=== PATIENT | male | born 1995 | race Caucasian/White ===

== ENCOUNTER → 2017-09-20 | Outpatient (CLI) | payer BC ==
--- NOTE | 2017-09-20 12:25 | DIAGNOSTIC IMAGING REPORT ---
ULTRASOUND KIDNEYS AND BLADDER CLINICAL HISTORY: Nephrolithiasis. COMPARISON STUDY: No priors. TECHNIQUE: Real-time, grayscale, and color flow sonography of the kidneys and bladder is performed. Images are reviewed in the transverse and longitudinal planes. FINDINGS: Kidneys: The kidneys are normal in size and echotexture. The right kidney measures 12.0 cm in length and the left kidney measures 11.4 cm in length. There is no hydronephrosis. No shadowing renal calculi are identified. There is no sonographic evidence of contour deforming renal mass lesion. No perinephric fluid is identified. Bladder: The bladder is normal in appearance. Bilateral ureteral jets were seen. IMPRESSION: Unremarkable sonographic assessment of the kidneys and bladder. Electronically signed by: Antonio Mcmahon M.D. 09/20/2017 12:23 PM Dictated Date/Time: 09/20/2017 12:23 PM
== END | disposition home or self-care (01) ==
LOC: C.ULTR 11:43
PROVIDERS: ATTEND Physician Assistant Medical
DX: Z87.442 Personal history of urinary calculi (principal)

== ENCOUNTER 2017-10-23 17:41 | Emergency (ER) | payer BC ==
[~2017-10-23] VITALS: Ht 188 cm; Wt 77.0 kg
[2017-10-23 17:46] VITALS: TEMP 36.9; Ht 188 cm; Wt 77.0 kg
--- NOTE | 2017-10-23 18:51 | DIAGNOSTIC IMAGING REPORT ---
CHEST ONE VIEW PORTABLE CLINICAL HISTORY: 22 years-old Male presenting with R CHEST PAIN WITH EXERTION. TECHNIQUE: Portable upright AP view of the chest was obtained. COMPARISON: None. FINDINGS: Cardiomediastinal silhouette normal. No focal opacity. No large effusion or pneumothorax. Osseous structures normal. Upper abdomen normal. IMPRESSION: 1. No acute cardiopulmonary disease. Electronically signed by: Luca Cantu M.D. 10/23/2017 6:50 PM Dictated Date/Time: 10/23/2017 6:49 PM
[2017-10-23 19:05] LABS: BASO % 0.1 %; BASO ABS # 0.01 K/uL (0-0.2); EOS % 0.1 %; EOS ABS # 0.01 K/uL (0-0.5); HEMATOCRIT 47.9 % (42-52); HEMOGLOBIN 17.2 g/dL (14.0-18.0); IG# 0.03 K/uL (0.00-0.02); LYMPH % 9.9 %; LYMPH ABS # 1.05 K/uL (1.2-3.4); MEAN CELL VOLUME 84.3 fL (80-100); MEAN CORPUSCULAR HEMOGLOBIN 30.3 pg (25-34); MEAN CORPUSCULAR HGB CONC 35.9 g/dl (32-36); MEAN PLATELET VOLUME 10.4 fL (7.4-10.4); MONO % 6.6 %; NEUT ABS # 8.77 K/uL (1.4-6.5); PLATELET COUNT 186 K/uL (130-400); RED CELL DISTRIBUTION WIDTH CV 12.4 % (11.5-14.5); RED CELL DISTRIBUTION WIDTH SD 37.6 fL (36.4-46.3); WHITE BLOOD COUNT 10.57 K/uL (4.8-10.8)
[2017-10-23 19:30] LABS: ALBUMIN 4.4 gm/dl (3.4-5.0); CALCIUM 9.1 mg/dl (8.5-10.1); CREATININE 1.22 mg/dl (0.60-1.40); POTASSIUM 3.8 mmol/L (3.5-5.1)
[2017-10-23 19:35] LABS: CKMB 1.1 ng/ml (0.5-3.6); TOTAL PROTEIN 7.5 gm/dl (6.4-8.2)
[2017-10-23 19:44] LABS: INR 1.1 (0.9-1.1); PTT PATIENT 24.5 SECONDS (21.0-31.0)
--- NOTE | 2017-10-23 21:09 | DIAGNOSTIC IMAGING REPORT ---
(CHEST FOR PE) ANGIO WITH CLINICAL HISTORY: 22 years-old Male presenting with ^PE, AORTIC ABNORMALITY ^EXERTIONAL R CHEST PAIN, shoulder pain. TECHNIQUE: Multidetector CT angiography of the chest was performed after administration of intravenous contrast. 3-D volumetric and/or maximum intensity projection (MIP) images were subsequently reconstructed for review. IV contrast: 116 mL of Optiray 320. A dose lowering technique was used consistent with the principles of ALARA (as low as reasonably achievable). COMPARISON: None. CT DOSE (mGy.cm): The estimated cumulative dose is 254.91 mGy.cm. FINDINGS: Employee Relations Specialist topogram: Unremarkable. Pulmonary vasculature: The study is adequate for assessment of the pulmonary vascular tree. No filling defect within the pulmonary arteries to suggest embolus. Main pulmonary artery is not enlarged. No flattening of the interventricular septum. No intracardiac filling defect. No reflux of contrast into the hepatic veins. Remaining chest: On soft tissue windows, normal thyroid and thoracic inlet. No axillary, supraclavicular, hilar, or mediastinal lymphadenopathy. Normal aorta. Normal heart size. No pericardial or pleural effusion. Upper abdomen normal. On lung windows, no focal infiltrate or nodule. Airways patent. On bone windows, normal osseous structures. IMPRESSION: 1. No evidence of pulmonary embolus. No acute intrathoracic pathology. Electronically signed by: Luca Cantu M.D. 10/23/2017 9:07 PM Dictated Date/Time: 10/23/2017 9:04 PM
--- NOTE | 2017-10-23 21:21 | EMERGENCY ROOM VISIT NOTE ---
History First contact with patient: 17:56 Chief Complaint: SHOULDER PAIN Stated Complaint: SHOULDER PAIN History of Present Illness Patient is an otherwise healthy 22-year-old male referred to the emergency department from [facility] for an episode of right sided clavicle/chest pain that occurred about 3 hours ago. Patient reports that he was performing a fitness test for [employer], which involved 1 minute of push-ups, 1 minute of sit ups and a 1-1/2 mile run. Patient relates that he was near the end of his ROM, when he developed a sharp, stabbing pain in the right midclavicular region, that radiated into his right upper chest and into his right biceps region. He tried to push through the pain to finish his run but was unable to. He states that he felt like if he did not stop he was going to "collapse." He states that at its worst the pain was a 9/10, was very severe which caused him to "hyperventilate," after which he became nauseous and vomited. He tried resting, walking, stretching and drinking water, but the pain persisted for over 90 minutes after he stopped running. He was thus sent to [facility] where they checked his vital signs and performed an EKG and referred him to the emergency department. At the present time the patient still has similar pain although only rates it a 6.5/10 presently. He notes the pain is better when he lays supine and he notes increased pressure when he sits upright. There is also some increased pain with taking a deep breath. He notes some tightness in his upper back but no actual right shoulder joint pain and the pain does not increase with shoulder movement. Patient denies any numbness, tingling or weakness radiating into the upper extremities bilaterally. The patient does report that he has had similar episodes of pain in the past but not as severe. He denies any calf or leg pain or swelling. He does report that he drove several hours to and from [place] this weekend, returning yesterday. Review of Systems Review of systems as per HPI. All other systems reviewed were negative. 10 systems reviewed. Past Medical/Surgical History Medical Problems: (1) Personal History Of Urinary Calculi (2) Sore throat Electronic medical records are reviewed and summarized as above/below. See Problem List. Social History Smoking Status: Never Smoker Alcohol Use: none Marital Status: single Housing Status: lives with roommate Occupation Status: [employer] student Current/Historical Medications No Active Prescriptions or Reported Meds Physical Exam Vital Signs Date Time Temp Pulse Resp B/P (MAP) Pulse Ox O2 Delivery O2 Flow Rate FiO2 10/23/17 17:46 36.9 109 18 118/69 96 Room Air Physical Exam CONSTITUTIONAL: Patient is a pleasant, well-appearing 22-year-old male who is awake and alert and sitting semiupright on the gurney in no acute distress. No conversational dyspnea. Vital signs are stable. He was slightly tachycardic in triage with a heart rate of 109 bpm. Vital signs were rechecked by me at the time of exam, heart rate was 88 bpm, O2 sat 96% on room air, BP in the left arm 120/70, BP in the right arm 125/69. EYES: Pupils equal, round, reactive to light and accommodation. EOMs intact without nystagmus. Sclera are anicteric. ENT: Tympanic membranes intact, with normal landmarks. External canals are clear. Oral and nasopharynx are clear. Mucous membranes are moist, no lesions , tongue and gums appear normal. NECK: No bruits auscultated. Supple without lymphadenopathy. No thyromegaly. No meningeal signs. Full active range of motion without discomfort. CARDIOVASCULAR: Regular rate and rhythm, with normal S1 and S2, no murmur or gallop or rub is heard. No carotid bruits auscultated. No JVD. Peripheral pulses easy to palpable. RESPIRATORY: Breath sounds equal and clear to auscultation without wheezes, rales, or rhonchi heard. Full and equal chest expansion without accessory muscle use or retractions. MUSCULOSKELETAL: Full range of motion of extremities x 4 with good strength. No cyanosis, edema, joint tenderness or swelling. No deformity. Right shoulder is nontender to palpation. Full range of motion. There is no reproducible tenderness to discomfort in the right trapezius or clavicular distribution. INTEGUMENTARY: No lesions or rash, normal skin turgor. NEUROLOGICAL: Alert, oriented, and cooperative. Cranial nerves, sensation and strength grossly intact. Pupils round, equal, and react to light, EOMs are full. LYMPH: No lymphadenopathy. Medical Decision & Procedures ER Provider Diagnostic Interpretation: (CHEST FOR PE) ANGIO WITH CLINICAL HISTORY: 22 years-old Male presenting with ^PE, AORTIC ABNORMALITY ^EXERTIONAL R CHEST PAIN, shoulder pain. TECHNIQUE: Multidetector CT angiography of the chest was performed after administration of intravenous contrast. 3-D volumetric and/or maximum intensity projection (MIP) images were subsequently reconstructed for review. IV contrast: 116 mL of Optiray 320. A dose lowering technique was used consistent with the principles of ALARA (as low as reasonably achievable). COMPARISON: None. CT DOSE (mGy.cm): The estimated cumulative dose is 254.91 mGy.cm. FINDINGS: Presiding Judge topogram: Unremarkable. Pulmonary vasculature: The study is adequate for assessment of the pulmonary vascular tree. No filling defect within the pulmonary arteries to suggest embolus. Main pulmonary artery is not enlarged. No flattening of the interventricular septum. No intracardiac filling defect. No reflux of contrast into the hepatic veins. Remaining chest: On soft tissue windows, normal thyroid and thoracic inlet. No axillary, supraclavicular, hilar, or mediastinal lymphadenopathy. Normal aorta. Normal heart size. No pericardial or pleural effusion. Upper abdomen normal. On lung windows, no focal infiltrate or nodule. Airways patent. On bone windows, normal osseous structures. IMPRESSION: 1. No evidence of pulmonary embolus. No acute intrathoracic pathology. CHEST ONE VIEW PORTABLE CLINICAL HISTORY: 22 years-old Male presenting with R CHEST PAIN WITH EXERTION. TECHNIQUE: Portable upright AP view of the chest was obtained. COMPARISON: None. FINDINGS: Cardiomediastinal silhouette normal. No focal opacity. No large effusion or pneumothorax. Osseous structures normal. Upper abdomen normal. IMPRESSION: 1. No acute cardiopulmonary disease. Laboratory Results 10/23/17 19:42 Red Blood Count 5.68, Mean Corpuscular Volume 84.3, Mean Corpuscular Hemoglobin 30.3, Mean Corpuscular Hemoglobin Concent 35.9, Mean Platelet Volume 10.4, Neutrophils (%) (Auto) 83.0, Lymphocytes (%) (Auto) 9.9, Monocytes (%) (Auto) 6.6, Eosinophils (%) (Auto) 0.1, Basophils (%) (Auto) 0.1, Neutrophils # (Auto) 8.77, Lymphocytes # (Auto) 1.05, Monocytes # (Auto) 0.70, Eosinophils # (Auto) 0.01, Basophils # (Auto) 0.01 10/23/17 19:42 Test 10/23/17 18:52 10/23/17 19:42 Bedside D-Dimer 265 ng/mlFEU (0-450) White Blood Count 10.57 K/uL (4.8-10.8) Red Blood Count 5.68 M/uL (4.7-6.1) Hemoglobin 17.2 g/dL (14.0-18.0) Hematocrit 47.9 % (42-52) Mean Corpuscular Volume 84.3 fL (80-100) Mean Corpuscular Hemoglobin 30.3 pg (25-34) Mean Corpuscular Hemoglobin Concent 35.9 g/dl (32-36) Platelet Count 186 K/uL (130-400) Mean Platelet Volume 10.4 fL (7.4-10.4) Neutrophils (%) (Auto) 83.0 % Lymphocytes (%) (Auto) 9.9 % Monocytes (%) (Auto) 6.6 % Eosinophils (%) (Auto) 0.1 % Basophils (%) (Auto) 0.1 % Neutrophils # (Auto) 8.77 K/uL (1.4-6.5) Lymphocytes # (Auto) 1.05 K/uL (1.2-3.4) Monocytes # (Auto) 0.70 K/uL (0.11-0.59) Eosinophils # (Auto) 0.01 K/uL (0-0.5) Basophils # (Auto) 0.01 K/uL (0-0.2) RDW Standard Deviation 37.6 fL (36.4-46.3) RDW Coefficient of Variation 12.4 % (11.5-14.5) Immature Granulocyte % (Auto) 0.3 % Immature Granulocyte # (Auto) 0.03 K/uL (0.00-0.02) Prothrombin Time 11.1 SECONDS (9.0-12.0) Prothromb Time International Ratio 1.1 (0.9-1.1) Activated Partial Thromboplast Time 24.5 SECONDS (21.0-31.0) Partial Thromboplastin Ratio 0.9 Anion Gap 8.0 mmol/L (3-11) Est Creatinine Clear Calc Drug Dose 103.4 ml/min Estimated GFR () 96.9 Estimated GFR (Non- 83.6 BUN/Creatinine Ratio 13.1 (10-20) Calcium Level 9.1 mg/dl (8.5-10.1) Total Bilirubin 0.7 mg/dl (0.2-1) Aspartate Amino Transf (AST/SGOT) 20 U/L (15-37) Alanine Aminotransferase (ALT/SGPT) 30 U/L (12-78) Alkaline Phosphatase 58 U/L (45-117) Total Creatine Kinase 340 U/L (39-308) Creatine Kinase MB 1.1 ng/ml (0.5-3.6) Creatine Kinase MB Ratio 0.3 (0-3.0) Troponin I 0.019 ng/ml (0-0.045) Total Protein 7.5 gm/dl (6.4-8.2) Albumin 4.4 gm/dl (3.4-5.0) Globulin 3.1 gm/dl (2.5-4.0) Albumin/Globulin Ratio 1.4 (0.9-2) ECG Per My Interpretation Indication: chest pain, back/shoulder pain Rate (beats per minute): 80 Rhythm: normal sinus Findings: no acute ischemic change, no ectopy Comparison ECG Date: no prior available ED Course The patient was seen and assessed as above. Old records were reviewed. IV lock was initiated and laboratory studies were collected. EKG was performed without evidence for arrhythmia or acute ischemic pattern. Chest x-ray was obtained and was unremarkable. Laboratory studies were collected including CBC with differential, coags, cardiac enzymes, CMP and [id number] d-dimer. Laboratory studies noted a normal white count. H&H is 1347, platelet count 187, 000, coags are normal. D-dimer is 265, which is within normal limits. Electrolytes renal functions and liver functions are normal. Troponin is negative 1 total CK, just slightly elevated at 340. Patient history, presentation and ED workup were reviewed with Dr. Franklin. Given the patient's atypical presentation, and negative workup thus far, CT scan of the chest was pursued, and was negative for PE or aortic/vascular abnormality. CT scan findings were reviewed with the patient. He was advised to rest and avoid any strenuous activity for about a week to avoid re-aggravation of his symptoms. He was encouraged to recheck with [facility] later this week for recheck, and to be cleared to return to full duty. Activity. He was welcome to return to the emergency department at any point for any worsening or change in his symptoms. He expressed understanding of this and was agreeable. Differential diagnosis includes acute myocardial infarction, acute coronary syndrome, myocarditis, pericarditis, cardiomyopathy, valvular heart disease, other vascular abnormality, aortic emergency, pulmonary embolism, pneumonia, pneumothorax, musculoskeletal pain, among others. Medical Decision See ED Course. Medication Reconcilliation Current Medication List: was personally reviewed by me Blood Pressure Screening Patient's blood pressure: Normal blood pressure Blood pressure disposition: Did not require urgent referral Impression Primary Impression: Right-sided chest pain Departure Information Prescriptions No Active Prescriptions or Reported Meds Referrals [facility] (PCP) Patient Instructions [facility] Additional Instructions Ibuprofen(Motrin, Advil) may be used for fever or pain. Use 600mg every six hours as needed. Take with food. Avoid using more than 2400mg in a 24 hour period. Do not use 2400mg per day for more than three consecutive days without physician direction. Prolonged inappropriate use can lead to stomach upset or ulcers. (AND/OR) Acetaminophen(Tylenol) may be used for fever or pain. Use 1000mg every six hours as needed. Avoid using more than 3000mg in a 24 hour period. Rest and drink plenty of fluids as tolerated. Continue current medications. Rest and avoid strenuous activities for about one week. Gradually resume normal activities once your symptoms resolve. Return to the ER immediately for worsening or persistent chest pain, abdominal pain, vomiting, fevers, chest pains, difficulty breathing, worsening of your condition, or as needed. Follow up with [facility] this week for a recheck of your current condition.
[2017-10-23 21:52] VITALS: BP 125/68; PULSE 80; O2SAT 98
== END 2017-10-23 21:35 | disposition home or self-care (01) ==
LOC: C.EDB 17:42 → C.EDD 21:35
DX: R07.89 Other chest pain (principal); R11.2 Nausea with vomiting, unspecified; R06.4 Hyperventilation